=== PATIENT | female | born 1995 | race Caucasian/White ===

== ENCOUNTER → 2017-07-20 | Outpatient (CLI) | payer MEDICAID ==
--- NOTE | 2017-07-20 17:01 | RADIOLOGY REPORT (SQ) ---
EXAM DESCRIPTION: U/S TRANSPLNT KIDNEY W/DOPPLER COMPLETED DATE/TIME: 07/20/2017 3:48 pm REASON FOR STUDY: KIDNEY REPLACED BY TRANSPLANT/ ELEVATED SERUM CREATININE Z94.0 KIDNEY TRANSPLANT STATUS R79.89 OTHER SPECIFIED ABNORMAL FINDINGS OF BLOOD CHEMISTRY COMPARISON: None. TECHNIQUE: Dynamic and static grayscale images acquired of the right lower quadrant transplant kidne y recorded on PACS. Additional selected color Doppler and spectral images recorded. SITE OF CONCERN: Right lower quadrant transplant kidney LIMITATIONS: None. FINDINGS: Right lower quadrant transplant kidney is 9.6 cm in length. Normal cortical thickness and echogenicity. No hydronephrosis. No perinephric fluid collections. No urinary calculi. Renal artery Doppler at the hilum demonstrates a mildly delayed systolic upstroke and normal velocity , with peak systolic velocity of 48 centimeters/second. There is a slightly elevated resistive index of 0.82. Intersegmental/segmental artery Doppler demonstrates normal velocity of 51 centimeters/second. The d iastolic flow. Renal vein flow is identified on color flow images. Imaging of the bladder demonstrates a right-sided ureteral jet IMPRESSION: Question renal artery stenosis with slightly delayed systolic upstroke in the transplant renal artery. Borderline elevated resistive index on arterial waveforms. TECHNICAL DOCUMENTATION: JOB ID: [id number] [employer]- All Rights Reserved Reading location - IP/workstation name: [email or web address]
== END ==
LOC: RAD 15:09
PROVIDERS: ATTEND Pediatrics Pediatric Nephrology
DX: R79.89 Other specified abnormal findings of blood chemistry (principal); Z94.0 Kidney transplant status
CPT/HCPCS: 76776